=== PATIENT | male | born 1945 | race Caucasian/White ===

== ENCOUNTER → 2021-07-09 | Outpatient (CLI) | payer MEDICARE, OTHER ==
[~2021-07-09] MED LIST: LISINOPRIL1 POW; LOW DOSE ASPIRI81 M1 PO; METOPROLOL SUCC25 M1; ZOCOR
== END ==
LOC: RAD 15:44
DX: N20.0 Calculus of kidney (principal); M41.86 Other forms of scoliosis, lumbar region; M51.36 Other intervertebral disc degeneration, lumbar region

== ENCOUNTER → 2021-11-11 | Day surgery (SDC) | payer MEDICARE, OTHER | END | disposition home or self-care (01) | LOC: MSO 07:11 | DX: Z12.11 Encounter for screening for malignant neoplasm of colon (principal) | CPT/HCPCS: G0121; 00812; J2704; J3010; J7120 ==

== ENCOUNTER → 2024-11-25 | Outpatient (CLI) | payer MEDICARE, OTHER | LOC: RAD 11:59 | DX: M19.072 Primary osteoarthritis, left ankle and foot (principal); I49.3 Ventricular premature depolarization ==